=== PATIENT | female | born 1965 | race Caucasian/White ===

== ENCOUNTER 2022-01-24 20:07 | Emergency (ER) | payer MEDICAID ==
[~2022-01-24] VITALS: Ht 172.7 cm; Wt 72.6 kg
[2022-01-24 20:20] VITALS: BP 128/85
--- NOTE | 2022-01-24 20:26 | NUR ---
PT TAKEN TO BED 4
--- NOTE | 2022-01-24 20:30 | NUR ---
RECEIVED IN BED 4 WITH C/O HEADACHE X 2 DAYS. WAS SEEN AT [facility] YESTERDAY FOR SAME COMPLAINT BUT IS NOT BETTER TODAY PMHx: 2 kidneys one side
--- NOTE | 2022-01-24 20:53 | NUR ---
Dr. Sherman examining patient.
[2022-01-24] MEDS ORDERED: KETOROLAC 15 MG/ML VIAL IM ONE (20:55)
[2022-01-24] MEDS ORDERED: ACETAMINOPHEN EXTRA STRENGTH 500 MG TAB PO ONE (20:55)
[2022-01-24] MEDS ORDERED: PROCHLORPERAZINE 10 MG/2 ML VIAL IM ONE (20:55)
[2022-01-24 23:35] VITALS: BP 128/85
--- NOTE | 2022-01-24 23:35 | NUR ---
Patient discharged with v/s stable. Written and verbal after care instructions given and explained. Patient verbalized understanding. Ambulatory with steady gait. All questions addressed prior to discharge. Advised to follow up with PMD.
== END 2022-01-24 23:35 | disposition home or self-care (01) ==
LOC: MED 20:07
DX: G43.909 Migraine, unspecified, not intractable, without status migrainosus (principal); Z88.2 Allergy status to sulfonamides
CPT/HCPCS: 96372; 99284; J0780; J1885